=== PATIENT | male | born 1970 | race Hispanic/Latino ===

== ENCOUNTER 2016-07-30 17:23 | Emergency (ER) | payer OTHER | END 2016-07-30 23:37 | disposition home or self-care (01) | LOC: ER 17:23 | DX: G44.211 Episodic tension-type headache, intractable (principal); J45.909 Unspecified asthma, uncomplicated; Z79.51 Long term (current) use of inhaled steroids; E03.9 Hypothyroidism, unspecified; F43.10 Post-traumatic stress disorder, unspecified | CPT/HCPCS: 36415; 70450; 80048; 85025; 85652; 96361; 96374; 96375 ==